=== PATIENT | male | born 1960 ===

== ENCOUNTER 2021-07-09 08:00 | Outpatient (CLI) | payer OTHER ==
[~2021-07-09 08:00] MED LIST: ALLEGRA ALLERG180 MG PO; BUCALSEP SPRAY30 ML MM; GILTUSS TR TAB1 EACH PO; MEDROLPACK PO; NORFLEX100MG PO; SYNTHROID175 MCG; ULTRACET PO
== END 2021-07-09 08:30 | disposition home or self-care (01) ==
LOC: PPH VACUNA 08:00
PROVIDERS: ATTEND Emergency Medicine Pediatric Emergency Medicine
DX: Z23 Encounter for immunization (principal)

== ENCOUNTER 2021-09-03 11:21 | Outpatient (CLI) | payer OTHER | END 2021-09-03 11:39 | disposition home or self-care (01) | LOC: RAD 11:21 | DX: M25.569 Pain in unspecified knee (principal) ==

== ENCOUNTER 2021-11-30 07:56 | Outpatient (CLI) | payer OTHER | END 2021-11-30 08:00 | disposition home or self-care (01) | LOC: MRI 07:56 | DX: M25.562 Pain in left knee (principal) | CPT/HCPCS: 73721 ==

== ENCOUNTER 2022-01-18 07:48 | Outpatient (CLI) | payer OTHER | END 2022-01-18 08:01 | disposition home or self-care (01) | LOC: RAD 07:48 | PROVIDERS: ATTEND Orthopaedic Surgery Sports Medicine | DX: M17.11 Unilateral primary osteoarthritis, right knee (principal); M17.12 Unilateral primary osteoarthritis, left knee ==

== ENCOUNTER 2024-08-08 09:39 | Outpatient (CLI) | payer OTHER | END 2024-08-08 09:47 | disposition home or self-care (01) | LOC: RAD 09:39 | PROVIDERS: ATTEND Obstetrics & Gynecology | DX: I10 Essential (primary) hypertension (principal) ==

== ENCOUNTER 2024-08-09 09:55 | Outpatient (CLI) | payer OTHER | END 2024-08-09 09:56 | disposition home or self-care (01) | LOC: LAB 09:55 | PROVIDERS: ATTEND Internal Medicine | DX: I11.9 Hypertensive heart disease without heart failure (principal); Z01.818 Encounter for other preprocedural examination ==

== ENCOUNTER 2024-11-26 14:21 | Outpatient (CLI) | payer OTHER | END 2024-11-26 14:34 | disposition home or self-care (01) | LOC: RAD 14:21 | DX: M79.641 Pain in right hand (principal) ==